=== PATIENT | female | born 1995 | race Caucasian/White ===

== ENCOUNTER 2021-07-05 19:53 | Outpatient (CLI) | payer MEDICAID ==
[~2021-07-05] VITALS: Ht 160 cm; Wt 85.0 kg
--- NOTE | 2021-07-05 19:55 | NUR ---
To unit via wheelchair for assessment, accompanied by significant. Pt tense, anxious, hyperventilating. Oriented to room, monitor, plan of care. Pt reports ctx/back pain "started 2 hours ago at a family event. My cousin is cerified and checked my cervix. She said I was 3 cm and better hurry to the hospital" Boyfriend stated "I looked down there and I knew the baby was coming" SVE 1+/80%-2 posterior, no bloody show or LOF. Spent several minutes encouraging pt to deep breathe, and relax.
[2021-07-05 19:59] VITALS: BP 120/72; PULSE 110; TEMP 98.7
--- NOTE | 2021-07-05 20:28 | NUR ---
Difficulaty maintaining FHT's tracing r/t active baby and pt restless in bed, moving monitors and belts States "I just can't find a comfortable position" To WR, pillow between knees and warm blanket to lower back. encouraged to not move monitors so I can obtain tracing. Verbalizes understanding
[2021-07-05 21:00] VITALS: BP 117/59; PULSE 105
--- NOTE | 2021-07-05 21:00 | NUR ---
Pt in semi-fowlers with FHR monitor tracing maternal rate. Denies contractions, states "i just hurt all over" SVE with no change. Discussed need to call manager instrumentation DR for ida. Pt asks "Dr Roles is my DR you need to call her" Explained on -call DR protocol with pt. Pt asks "But if I'm in labor Dr Roles will come in to deliver my baby wnon't she?" Again explained manager instrumentation process with pt. Pt gets agitated saying "but I don't know the other drs" Reassured the pt that all the Dr's were very good and would provide excellent care for her. Boyfriend reassures pt "it will be ok". Encouraged to discuss manager instrumentation process with Dr Roles at next visit. Monitors off.
--- NOTE | 2021-07-05 21:20 | NUR ---
Discharge instructions reviewed, at length, with pt and boyfriend. Questions invited and answered. 2129 Off unit.
== END 2021-07-05 21:30 | disposition home or self-care (01) ==
LOC: LDRO 19:53 → LDR 19:53 → LDRO 21:30
DX: O62.9 Abnormality of forces of labor, unspecified (principal); Z3A.36 36 weeks gestation of pregnancy
CPT/HCPCS: OP

== ENCOUNTER 2021-07-18 17:18 | Inpatient (IN) | payer MEDICAID ==
[2021-07-18] VITALS (8 sets, daily range): BP systolic 111–124; BP diastolic 68–75; PULSE 86–107; TEMP 98.4–98.5
[~2021-07-18] VITALS: Ht 160 cm; Wt 87.3 kg
--- NOTE | 2021-07-18 17:20 | NUR ---
1720-, 38.1, comes onto unit by wheelchair with spouse to LDR5. Oriented to room. Changed into gown. Patient reports "gush of fluids" at 1530 today. Denies VB or decreased movement. Contractions irregular at this time, q 5-7 minutes. EFM/TOCO explained and applied. Assessments completed. Plan of care discussed. 1820-IV started. Blood obtained and to lab. UDS explained and collected.
[2021-07-18] MEDS ORDERED: PRENATAL TABLET PO (17:44)
[2021-07-18 18:36] LABS: BASO % 0.4 % (0.0-2.0); EOS # 0.1 K/mm3 (0.0-0.7); EOS % 1.1 % (0-4.0); GRAN # 8.6 K/mm3 (1.4-6.5); GRAN % 75.8 % (42.2-75.2); HEMATOCRIT 38.2 % (37.0-47.0); HEMOGLOBIN 12.2 g/dl (12.5-16.0); LYMPH # 1.6 K/mm3 (1.2-3.4); LYMPH % 14.5 % (20.0-51.0); MEAN CELL VOLUME 81 fl (80.0-100.0); MEAN CORPUSCULAR HEMOGLOBIN 26 pg (27.0-31.0); MEAN CORPUSCULAR HGB CONC 32 g/dl (33.0-37.0); MEAN PLATELET VOLUME 12.3 fl (7.4-10.4); MONO # 0.8 K/mm3 (0.1-0.6); PLATELET COUNT 257 K/mm3 (130-400); RED BLOOD COUNT 4.72 M/mm3 (4.10-5.30); REDCELL DISTRIBUTION WIDTH-CV 15.4 % (11.5-14.5)
[2021-07-18 18:50] LABS: TRICYCLIC ANTIDEPRESS URINE NEGATIVE
--- NOTE | 2021-07-18 20:15 | NUR ---
To CARLOS ALBERTO.
--- NOTE | 2021-07-18 20:45 | NUR ---
Pt reports "I have a really sharp pain in the low middle part of my belly" SVE with no changes noted. Assisted pt out of bed, encouraged to lean over bed. Pt states "that isn't helping" To bathroom to sit on toilet, voids large amount. states "oh my gosh! That feels so much better. Why did that hurt so much? I thought it was my uterus" Explained to pt that bladder and uterus are cramped in there together. Pt to shower. attentive outside shower.
--- NOTE | 2021-07-18 21:20 | NUR ---
out of shower. Stands at bedside doing stretching exercises. to the store for lavender
--- NOTE | 2021-07-18 21:45 | NUR ---
Pt tearful, states "my left to go put the carseat in. Why didn't he think of it last time? He's been gone more than he's been here.I feel alone." Emotional support given
--- NOTE | 2021-07-18 22:00 | NUR ---
Pt continues off monitor. FHT's doppler @ 140's, audible accelerations, movements palpated. Pt reports "the contractions aren't very close" Discussed that pallet stone positioner would like Pitocin started @ 2200 if contractions are not regular. Pt becomes upset, stating "I don't want that! Do I have to" Explained to pt that it is recommended that baby's are delivered within 18 hours of SROM to decrease risk of infection. Pt states "My water was broke for 29 hours before I had my daughter 9 years ago" Discussed difference in policies, plans to place and how information changes over time. Pt states "I still want to wait and try to do it naturally" Plan with pt to recheck @ midnight and discuss again.
[2021-07-19] VITALS (50 sets, daily range): BP systolic 85–125; BP diastolic 42–86; PULSE 1–102; TEMP 97.6–98.9
--- NOTE | 2021-07-19 00:25 | NUR ---
SVE with no changes. Pt tired, tearful. Agrees to pitocin gtt induction "after my comes back"
--- NOTE | 2021-07-19 01:20 | NUR ---
Pt irritable, states "I don't know why he 's not back yet. He makes me so mad." Emotional support given. LR started. Informed pt that Pitocin will need to be started even if he doesn't get back soon. Verbalizes understanding.
--- NOTE | 2021-07-19 05:30 | NUR ---
SVE with minimal change. Pt frustrated. Up to bathroom.
--- NOTE | 2021-07-19 06:15 | NUR ---
This RN receives bedside report from Stacy FUENTES. Patient is resting in bed and has no needs at this time. Plan of care discussed. 0700: SVE-3/80/-2 and patient frustated at this time with not having cervical change. Patient updated and educated. 0810: Roles at bedside assessing patient and FHR strip. Roles discussing the need for pitocin to be continued. Patient agrees with plan. 0850: Patient up on birthing ball.
--- NOTE | 2021-07-19 07:40 | NUR ---
Patient states "I do not want the pitocin to go any higher". This RN discussing with patient the need for pitocin at this time but will not turn pitocin up until Dr. Sierra comes to talk with her this morning. Patient agrees with plan of care. SVE- /-2 1030: Patient requesting epidural and Ja [employer] WORK[employer] called and notified. Patient uncontrolled with contractions, this RN at bedside. 1105: Patient sitting up for epidural and difficulty tracing FHR due to maternal position. 1107: Single shot given and patient tolerates well. 1108: Test dose given and patient tolerates well. Plan of care discussed and safety instructions discussed.
--- NOTE | 2021-07-19 11:20 | NUR ---
1120: Patient left lateral and resting/relaxed. 1220: Patient straight catherized at this time and tolerates well. Patient right lateral and resting. 1300: Patient states feeling more pressure. SVE-10/100/[address] Sierra called and notified and orders to practice push with patient. 1307: Patient practice pushes and progress noted and Dr Sierra called for delivery. Patient prepped for vaginal delivery and plan of care discussed. 1315: Dr. Sierra at bedside assessing patients progress and patient continues to push with contractions. 1322: Bed taken apart and feet in footplates. Dr. Sierra continues to push with patient. 1326: Spontaneous vaginal delivery of head, shoulder dystocia less that a minute. Rodolfo and Superpubic pressure done. Shoulders delivery and bulb syringed. Infant to patients abdomen and Anthony Marinelli RN assumes care of . Cord clamped by Dr. Sierra and cut by FOB. Cord blood obtained. IV noted ot be pulled out at this time. Dr. Sierra orders to give 20mg of pitocin IM and no need for IV to be replaced at this time. 1331:Spontaneous vaginal delivery of placenta at this time and fundal massage done/firm/bleeding WNL. Pericare done, ice pack to perineum, and plan of care discussed.
--- NOTE | 2021-07-19 21:30 | NUR ---
RN DISCUSSED WITH MOM ABOUT BABY URINE COMING BACK POSITIVE FOR AMPHETAMINES. AND THAT THE PED. WANTS MOM TO BOTTLE FEED UNTIL WE CAN GET REULTS OF SENT OUT UNINE WITH MORE COMPLETE TEST RESULTS. MOM BECOMES DEFENSIVE AND ALEXX- DOES NOT WANT TO GIVE HER CHILD FORMULA- CLAIMS SHE IS SOBER AND HAS NOT USED DRUGS IN 2 YEARS. RN EXPAINS WE CAN NOT IGNORE THE UA RESELTS- WE ALWAYS USE CAUTION WHEN CARING FOR NEWBORNS- MOM WANTS TO PUMP- SHE HAD HER BRING HER PUMP- IT TAKES LOTS OF CONVINCING TO GET PT TO OFFER BABY THE BOTTLE MOM STATES SHE TESTED NEGATIVE SO HOW CAN HER BABY BE POSITIVE- RN STATES THAT IS CONFUSUNG TO HER WELL. PT VOICES UNDERATANDING WE NEED TO BOTTLE FEED TIL OTHER LAB RESULTS COME BACK NEGATIVE AND IF SHE PUMPS SHE MUST DUMP THE BRST MILK
[2021-07-20] VITALS: BP 110/65; PULSE 90; TEMP 98
[2021-07-20 04:00] VITALS: BP 97/59; PULSE 62; TEMP 97.8
[2021-07-20 08:00] VITALS: BP 98/59; PULSE 69; TEMP 97.7
[2021-07-20] MEDS ORDERED: IBU800 M1 PO (10:05)
--- NOTE | 2021-07-20 11:23 | NUR ---
Initial visit attempt; Physician with patient, Food Vendor left card of congratulations for the of their son and information regarding the availability of Spiritual Care at our hospital.
[2021-07-20 11:30] VITALS: BP 117/59; PULSE 77; TEMP 97.9
--- NOTE | 2021-07-20 14:30 | NUR ---
1330- INTO ROOM TO GET BABY FOR 24 HOUR LABS. MOM ASLEEP WITH BABY IN BED. THIS RN HAD TO WAKE MOM UP BY TOUCHING HER AND STATING HER NAME LOUDLY. THIS RN ASKED IF I COULD BRING BABY TO NURSERY FOR 24 HOUR LABS AND STATED THAT SHE COULD SLEEP WHILE BABY IS GONE INSTEAD OF FALLING ASLEEP WITH BABY IN BED. SHE SAYS YES AND IMMEDIATELY FALLS BACK ASLEEP WHILE THIS RN GATHERS BABY AND CRIB. 1425- THIS RN TO MOMS ROOM TO RETURN BABY. MOM IS ASLEEP AND NOT WAKING UP WHEN SAYING HER NAME. THIS RN HAS TO SHAKE MOM FOR HER TO FINALLY WAKE UP. PT APPEARS OUT OF IT AND STATES SHE IS "JUST SO TIRED." THIS RN KEEPS BABY IN CRIB AND TELLS MOM IT IS OKAY FOR HER TO SLEEP WHILE BABY SLEEPS LONG BABY IS IN THE CRIB.
--- NOTE | 2021-07-20 15:42 | NUR ---
SW called and informed that referral was made to case managment due to consult for identified risk of presence of illegal drugs in . SW met with patient to complete intake questions, and assist with providing resource documenation in [facility] due to patient and spouse residing in [facility]. SW informed that patient did not have custody of her daughter, but does have custody of son. Patient provides that her daughter is in [place] with her father due her daughter's father being difficult. Patient states that she was in the process of obtaining custody of her daughter before coming to [place], but had to come to [place] due to her husbands grandfather being ill. Patient states that her boy friend has recently been in and out of senior living and hasn't had the opportunity to spend time with his grandfather and now wants to ensure that he assists with taking care of him. Patient provides onces things get settled settled she plans to return and attempt to get her daughter from [place]. Patient is aware that son recently born will have to stay in hospital until further labs returned due to illegal drug use in system. Patient states she is unsure of how that can be due to not utilizing illegal drugs for two years. Nurse informed SW that patient became angry with physician when informed it would take about 5 business days until results returned.
[2021-07-20 16:15] VITALS: BP 110/64; PULSE 82; TEMP 98.1
--- NOTE | 2021-07-20 18:08 | NUR ---
PT OFFERED MOTRIN AND STOOL SOFTENER AT THIS TIME AND PATIENT WANTS TO WAIT UNTIL DINNER GETS HERE TO TAKE THESE PILLS.
[2021-07-20 19:40] VITALS: BP 111/78; PULSE 68; TEMP 97.2
[2021-07-21 08:30] VITALS: BP 110/56; PULSE 76; TEMP 98
[2021-07-21 11:52] LABS: TRICYCLIC ANTIDEPRESS URINE NEGATIVE
--- NOTE | 2021-07-21 19:07 | NUR ---
Sw met with the pt to do a follow up due to RN nurses not sure if Elie Lewis had a made DCF report and they wanted Sw to informed the pt that she was being reported to DCF. The Sw met with the pt and informed the pt that all social workers are mandated reporters and that soledad has report this incident to the state and they most likely will call you this week to follow up. The pt was asking the Sw if the state will take her baby or if the OB nurses will take him. The pt understood that she was reported and had no issues.
== END 2021-07-21 14:00 | disposition home or self-care (01) | DRG 807 ==
LOC: LDRO 17:18 → LDR 18:06 → OB 18:06
PROVIDERS: Obstetrics & Gynecology; Student in an Organized Health Care Education/Training Program; ADMIT Obstetrics & Gynecology
PROC: 10E0XZZ Delivery of Products of Conception, External Approach (ICD-10-PCS; principal; 2021-07-18)
DX: O99.324 Drug use complicating childbirth (principal); Z37.0 Single live birth; F12.90 Cannabis use, unspecified, uncomplicated; O99.344 Other mental disorders complicating childbirth; F41.3 Other mixed anxiety disorders; F32.A Depression, unspecified; O99.52 Diseases of the respiratory system complicating childbirth; J06.9 Acute upper respiratory infection, unspecified; O66.0 Obstructed labor due to shoulder dystocia; Z3A.38 38 weeks gestation of pregnancy; Z20.822 Contact with and (suspected) exposure to COVID-19
CPT/HCPCS: J2590; J7120

== ENCOUNTER 2024-04-09 18:01 | Emergency (ER) | payer SELFPAY ==
[~2024-04-09] VITALS: Ht 160 cm; Wt 65.9 kg
[~2024-04-09 18:01] MED LIST: IBU800 M1 PO; PRENATAL TABLET PO
[2024-04-09 18:06] VITALS: TEMP 98.6
[2024-04-09] MEDS ORDERED: DOXYCYCLINE 10100 MG PO (18:29)
[2024-04-09] MEDS ORDERED: PREDNISONE50 MG PO (18:29)
[2024-04-09] MEDS ORDERED: predniSONE 10 MG TAB PO ONE (18:30)
[2024-04-09] MEDS ORDERED: Doxycycline Monohydrate 100 MG CAP PO ONE (18:30)
[2024-04-09 19:12] VITALS: BP 108/75; PULSE 82
== END 2024-04-09 19:13 | disposition home or self-care (01) ==
LOC: COL.ER 18:01
DX: L02.11 Cutaneous abscess of neck (principal); Z91.040 Latex allergy status; Z88.0 Allergy status to penicillin; Z88.2 Allergy status to sulfonamides
CPT/HCPCS: J7512